=== PATIENT | female | born 1965 | race Caucasian/White ===

== ENCOUNTER → 2020-09-23 16:55 | Outpatient (CLI) | payer BC, SELFPAY ==
[2020-09-23 17:39] LABS: Basophils # 0.1 K/mm3 (0-0.2); Basophils % 0.5 % (0.1-2.0); Eosinophils # 0.3 K/mm3 (0.0-0.4); Eosinophils % 3.4 % (0.1-12.0); Hematocrit 53.1 % (37.0-47.0); Hemoglobin 17.2 g/dL (12.2-16.2); Lymphocytes # 1.9 K/mm3 (0.7-4.5); Lymphocytes % 21.4 % (10-50); Mean Corpuscular HGB Conc 32.5 g/dL (31.8-35.4); Mean Corpuscular Hemoglobin 30.8 pg (27.0-31.2); Mean Corpuscular Volume 94.7 fl (81-99); Mean Platelet Volume 10.1 fl (7.4-10.4); Monocytes # 0.5 K/mm3 (0.1-1.0); Monocytes % 5.8 % (1.7-9.3); Neutrophils # 6.1 K/mm3 (1.8-7.8); Neutrophils % 68.9 % (37.0-80.0); Platelet Count 333 K/mm3 (142-424); Red Cell Distribution Width 13.7 % (11.5-17.5); White Blood Count 8.9 K/mm3 (4.8-10.8)
[2020-09-23 17:42] LABS: Alanine Aminotransferase 23 U/L (12-78); Albumin Level 4.5 g/dl (3.5-5.0); Albumin/Globulin Ratio 1.3 (1.1-1.8); Alkaline Phosphatase 98 U/L (38-126); Anion Gap 13.7 mEq/L (5-15); Aspartate Amino Transferase 29 U/L (14-36); Bilirubin,Total 0.5 mg/dl (0.2-1.3); Blood Urea Nitrogen 23 mg/dl (7-17); Calcium 10.3 mg/dl (8.4-10.2); Carbon Dioxide 28 mmol/L (22.0-30.0); Chloride 102 mmol/L (98-107); Chol/HDL Ratio 4.4 (1-3.5); Cholesterol 272 mg/dl (140-200); Estimated Glomerular Filt Rate 65 ml/min (>60); GFR (African American) 78 ML/MIN (>60); Globulin 3.5 g/dL (1.3-3.2); Glucose 112 mg/dl (74-100); HDL Cholesterol 62 mg/dl (40-60); Potassium 4.7 mmoL/L (3.5-5.1); Sodium 139 mmol/L (136-145); Triglycerides 239 mg/dl (30-150); VLDL Cholesterol 48 mg/dL (0-40)
[2020-09-23 17:53] LABS: Direct LDL Cholesterol 165.98 mg/dL (100-129)
[2020-09-23 17:58] LABS: T4 (Thyroxine) 11.2 ug/dl (5.53-11.0)
[2020-09-23 18:12] LABS: Thyroid Stimulating Hormone 3.85 uIU/mL (0.465-4.68)
== END ==
PROVIDERS: Visit Provider Family Medicine
DX: M79.7 Fibromyalgia (principal); E03.9 Hypothyroidism, unspecified; L85.3 Xerosis cutis
CPT/HCPCS: 80053; 80061; 83036; 84436; 84443; 85025

== ENCOUNTER → 2021-03-14 14:04 | Outpatient (CLI) | payer BC, SELFPAY ==
[2021-03-14 14:38] LABS: Basophils % 0.3 % (0.1-2.0); Eosinophils # 0.3 K/mm3 (0.0-0.4); Eosinophils % 2.9 % (0.1-12.0); Hematocrit 49.3 % (37.0-47.0); Hemoglobin 15.6 g/dL (12.2-16.2); Lymphocytes # 1.7 K/mm3 (0.7-4.5); Lymphocytes % 19.8 % (10-50); Mean Corpuscular HGB Conc 31.7 g/dL (31.8-35.4); Mean Corpuscular Hemoglobin 29.1 pg (27.0-31.2); Mean Platelet Volume 9.5 fl (7.4-10.4); Monocytes # 0.6 K/mm3 (0.1-1.0); Monocytes % 7.6 % (1.7-9.3); Neutrophils # 5.9 K/mm3 (1.8-7.8); Neutrophils % 69.4 % (37.0-80.0); Platelet Count 299 K/mm3 (142-424); Red Blood Count 5.36 M/mm3 (4.20-5.40); Red Cell Distribution Width 13.3 % (11.5-17.5); White Blood Count 8.5 K/mm3 (4.8-10.8)
[2021-03-14 14:42] LABS: Alanine Aminotransferase 23 U/L (12-78); Albumin Level 4.3 g/dl (3.5-5.0); Albumin/Globulin Ratio 1.4 (1.1-1.8); Alkaline Phosphatase 98 U/L (38-126); Anion Gap 15.9 mEq/L (5-15); Aspartate Amino Transferase 27 U/L (14-36); Bilirubin,Total 0.4 mg/dl (0.2-1.3); Blood Urea Nitrogen 16 mg/dl (7-17); Calcium 9.6 mg/dl (8.4-10.2); Carbon Dioxide 25 mmol/L (22.0-30.0); Chloride 105 mmol/L (98-107); Cholesterol 188 mg/dl (140-200); Estimated Glomerular Filt Rate 65 ml/min (>60); GFR (African American) 78 ML/MIN (>60); Glucose 88 mg/dl (74-100); HDL Cholesterol 63 mg/dl (40-60); Potassium 4.9 mmoL/L (3.5-5.1); Sodium 141 mmol/L (136-145); Total Protein,Serum 7.3 g/dl (6.3-8.2); Triglycerides 177 mg/dl (30-150); VLDL Cholesterol 35 mg/dL (0-40)
[2021-03-14 15:11] LABS: Thyroid Stimulating Hormone 4.24 uIU/mL (0.465-4.68)
[2021-03-14 19:31] LABS: Direct LDL Cholesterol 91.96 mg/dL (100-129)
== END ==
PROVIDERS: Visit Provider Family Medicine
DX: N39.0 Urinary tract infection, site not specified (principal); E03.9 Hypothyroidism, unspecified
CPT/HCPCS: 80053; 80061; 84443; 85025; 87086

== ENCOUNTER → 2021-12-15 15:48 | Outpatient (CLI) | payer MEDICAID, SELFPAY ==
[2021-12-15 14:24] LABS: Basophils # 0.1 K/mm3 (0-0.2); Basophils % 0.7 % (0.1-2.0); Eosinophils # 0.2 K/mm3 (0.0-0.4); Eosinophils % 2.8 % (0.1-12.0); Hematocrit 49.2 % (37.0-47.0); Hemoglobin 15.9 g/dL (12.2-16.2); Lymphocytes # 1.5 K/mm3 (0.7-4.5); Mean Corpuscular HGB Conc 32.4 g/dL (31.8-35.4); Mean Corpuscular Hemoglobin 30.2 pg (27.0-31.2); Mean Corpuscular Volume 93.1 fl (81-99); Mean Platelet Volume 9.4 fl (7.4-10.4); Monocytes # 0.5 K/mm3 (0.1-1.0); Monocytes % 6.2 % (1.7-9.3); Neutrophils # 6.1 K/mm3 (1.8-7.8); Neutrophils % 72.4 % (37.0-80.0); Platelet Count 398 K/mm3 (142-424); Red Blood Count 5.29 M/mm3 (4.20-5.40); Red Cell Distribution Width 13.8 % (11.5-17.5); White Blood Count 8.5 K/mm3 (4.8-10.8)
[2021-12-15 14:51] LABS: Erythrocyte Sedimentation Rate 13 mm/hr (0-30)
[2021-12-15 15:50] LABS: Alanine Aminotransferase 29 U/L (12-78); Albumin Level 4.3 g/dl (3.5-5.0); Albumin/Globulin Ratio 1.4 (1.1-1.8); Alkaline Phosphatase 102 U/L (38-126); Anion Gap 11.4 mEq/L (5-15); Aspartate Amino Transferase 28 U/L (14-36); Bilirubin,Total 0.4 mg/dl (0.2-1.3); Blood Urea Nitrogen 19 mg/dl (7-17); Calcium 9.3 mg/dl (8.4-10.2); Carbon Dioxide 28 mmol/L (22.0-30.0); Chloride 102 mmol/L (98-107); Creatine Kinase 45 U/L (30-135); Estimated Glomerular Filt Rate 64 ml/min (>60); GFR (African American) 78 ML/MIN (>60); Glucose 86 mg/dl (74-100); Potassium 5.4 mmoL/L (3.5-5.1); Sodium 136 mmol/L (136-145); Total Protein,Serum 7.3 g/dl (6.3-8.2)
[2021-12-15 15:56] LABS: C-Reactive Protein 25.1 mg/L (0-4)
[2021-12-15 16:23] LABS: Thyroid Stimulating Hormone 2.98 uIU/mL (0.465-4.68)
[2021-12-18 22:13] LABS: Antinuclear Antibodies (ANA) NEGATIVE
== END ==
PROVIDERS: Visit Provider Family Medicine
DX: M25.50 Pain in unspecified joint (principal)
CPT/HCPCS: 80053; 82550; 83036; 84443; 85025; 85651; 86038; 86140

== ENCOUNTER → 2022-05-29 16:17 | Outpatient (CLI) | payer MEDICAID, SELFPAY ==
[2022-05-29 14:40] LABS: Erythrocyte Sedimentation Rate 12 mm/hr (0-30)
[2022-05-29 14:47] LABS: Creatine Kinase 48 U/L (30-135)
[2022-05-29 14:52] LABS: C-Reactive Protein 36.6 mg/L (0-4)
[2022-06-13 17:34] LABS: Antinuclear Antibodies (ANA) Negative; Rheumatoid Factor IGA < 7; Rheumatoid Factor IGM < 7
== END ==
PROVIDERS: PCP Family Medicine; Visit Provider Family Medicine
DX: M79.7 Fibromyalgia (principal)
CPT/HCPCS: 82550; 85651; 86038; 86140; 86431

== ENCOUNTER 2023-10-14 23:06 | Outpatient (CLI) | payer MEDICARE, MEDICAID, SELFPAY ==
[2023-10-14 18:59] LABS: Basophils # 0.1 K/mm3 (0-0.2); Basophils % 0.7 % (0.1-2.0); Eosinophils # 0.4 K/mm3 (0.0-0.4); Eosinophils % 3.9 % (0.1-12.0); Hematocrit 47.8 % (37.0-47.0); Hemoglobin 15.7 g/dL (12.2-16.2); Lymphocytes # 2.3 K/mm3 (0.7-4.5); Lymphocytes % 24.6 % (10-50); Mean Corpuscular HGB Conc 32.8 g/dL (31.8-35.4); Mean Corpuscular Hemoglobin 30.5 pg (27.0-31.2); Mean Corpuscular Volume 93.1 fl (81-99); Mean Platelet Volume 9.6 fl (7.4-10.4); Monocytes # 0.6 K/mm3 (0.1-1.0); Monocytes % 6.6 % (1.7-9.3); Neutrophils # 6.1 K/mm3 (1.8-7.8); Neutrophils % 64.2 % (37.0-80.0); Platelet Count 321 K/mm3 (142-424); Red Blood Count 5.14 M/mm3 (4.20-5.40); Red Cell Distribution Width 14.1 % (11.5-17.5); White Blood Count 9.5 K/mm3 (4.8-10.8)
[2023-10-14 19:16] LABS: Alanine Aminotransferase 26 U/L (12-78); Albumin Level 3.8 g/dl (3.5-5.0); Albumin/Globulin Ratio 1.3 (1.1-1.8); Alkaline Phosphatase 90 U/L (38-126); Anion Gap 10.5 mEq/L (5-15); Aspartate Amino Transferase 28 U/L (14-36); Bilirubin,Total 0.3 mg/dl (0.2-1.3); Blood Urea Nitrogen 12 mg/dl (7-17); Calcium 9.9 mg/dl (8.4-10.2); Carbon Dioxide 28 mmol/L (22.0-30.0); Chloride 104 mmol/L (98-107); Chol/HDL Ratio 4.3 (1-3.5); Cholesterol 247 mg/dl (140-200); Estimated Glomerular Filt Rate 85 ml/min (>60); GFR (African American) 103 ML/MIN (>60); Globulin 2.9 g/dL (1.3-3.2); Glucose 123 mg/dl (74-100); HDL Cholesterol 57 mg/dl (40-60); Potassium 4.5 mmoL/L (3.5-5.1); Sodium 138 mmol/L (136-145); Total Protein,Serum 6.7 g/dl (6.3-8.2); Triglycerides 222 mg/dl (30-150); VLDL Cholesterol 44 mg/dL (0-40)
[2023-10-14 19:27] LABS: Direct LDL Cholesterol 144.81 mg/dL (100-129)
[2023-10-14 19:46] LABS: Thyroid Stimulating Hormone 2.52 uIU/mL (0.465-4.68)
[2023-10-14 21:58] LABS: Hemoglobin A1C 6.9 % (4.0-6.0)
== END 2023-10-14 23:59 ==
LOC: LAB.DROPOF 23:06
PROVIDERS: PCP Family Medicine; Visit Provider Family Medicine
DX: E03.9 Hypothyroidism, unspecified (principal); E11.9 Type 2 diabetes mellitus without complications; Z79.84 Long term (current) use of oral hypoglycemic drugs; Z79.899 Other long term (current) drug therapy
CPT/HCPCS: 80053; 80061; 83036; 84443; 85025

== ENCOUNTER 2024-08-04 09:18 | Outpatient (CLI) | payer MEDICARE, MEDICAID, SELFPAY ==
[2024-08-04 18:58] LABS: Alanine Aminotransferase 32 U/L (12-78); Albumin/Globulin Ratio 1.4 (1.1-1.8); Alkaline Phosphatase 122 U/L (38-126); Anion Gap 13.3 mEq/L (5-15); Aspartate Amino Transferase 31 U/L (14-36); Bilirubin,Total 0.6 mg/dl (0.2-1.3); Blood Urea Nitrogen 14 mg/dl (7-17); Calcium 9.4 mg/dl (8.4-10.2); Carbon Dioxide 24 mmol/L (22.0-30.0); Chloride 106 mmol/L (98-107); Chol/HDL Ratio 3.1 (1-3.5); Cholesterol 214 mg/dl (140-200); Estimated Glomerular Filt Rate 85 ml/min (>60); GFR (African American) 103 ML/MIN (>60); Globulin 2.8 g/dL (1.3-3.2); Glucose 88 mg/dl (74-100); HDL Cholesterol 68 mg/dl (40-60); Potassium 4.3 mmoL/L (3.5-5.1); Sodium 139 mmol/L (136-145); Total Protein,Serum 6.8 g/dl (6.3-8.2); Triglycerides 131 mg/dl (30-150); VLDL Cholesterol 26 mg/dL (0-40)
[2024-08-04 19:08] LABS: Direct LDL Cholesterol 136.98 mg/dL (100-129)
[2024-08-04 19:28] LABS: Thyroid Stimulating Hormone 2.28 uIU/mL (0.465-4.68)
[2024-08-05 14:47] LABS: Hemoglobin A1C 5.5 % (4.0-6.0)
== END 2024-08-04 23:59 | disposition home or self-care (01) ==
LOC: LAB.DROPOF 08-07 09:19
PROVIDERS: PCP Family Medicine; Visit Provider Family Medicine
DX: E03.9 Hypothyroidism, unspecified (principal); E11.9 Type 2 diabetes mellitus without complications
CPT/HCPCS: 80053; 80061; 83036; 84443

== ENCOUNTER 2024-10-06 09:50 | Outpatient (CLI) | payer MEDICARE, SELFPAY ==
--- NOTE | 2024-10-06 09:51 | CT_ITS ---
FINAL REPORT TECHNIQUE: Axial images through the abdomen and pelvis were performed without contrast. This study was performed with techniques to keep radiation doses as low as reasonably achievable, (ALARA). Individualized dose reduction techniques using automated exposure control or adjustment of mA and/or kV according to the patient's size were employed. CLINICAL HISTORY: Pelvic pain COMPARISON: None FINDINGS: Abdomen: Calcified granuloma is seen at the right lung base. The liver parenchyma is homogeneous. The gallbladder is not clearly seen. Calcified granulomas are seen throughout the spleen. The pancreas and adrenal glands are unremarkable. There is a small nonobstructing stone in the lower pole of the left renal collecting system measuring 3 mm and well seen on image 50 of series 601. There is a parapelvic cyst in the left kidney measuring 2.5 cm in greatest dimension. Pelvis: The urinary bladder is decompressed. The appendix is unremarkable. Calcified phleboliths are seen in the floor the pelvis. There is no acute inflammatory reaction. No fluid collections are seen. IMPRESSION: Nonobstructing left kidney stone. Left parapelvic renal cyst. Reviewed, Interpreted and Dictated by Tanner Peng MD Transcribed by Roseline Boyle Authenticated and [facility]
== END 2024-10-06 23:59 | disposition home or self-care (01) ==
LOC: RAD 09:51
PROVIDERS: PCP Family Medicine; Visit Provider Nurse Practitioner Obstetrics & Gynecology
DX: N73.6 Female pelvic peritoneal adhesions (postinfective) (principal)
CPT/HCPCS: 74176

== ENCOUNTER 2025-03-14 09:40 | Outpatient (CLI) | payer MEDICARE, SELFPAY ==
[2025-03-14 21:30] LABS: Hematocrit 50.9 % (37.0-47.0); Hemoglobin 15.4 g/dL (12.2-16.2); Immature Granulocytes % 0.4 %; Mean Corpuscular HGB Conc 30.3 g/dL (31.8-35.4); Mean Corpuscular Hemoglobin 29.3 pg (27.0-31.2); Mean Corpuscular Volume 97.0 fl (81-99); Nucleated Red Blood Cells % 0 %; Platelet Count 313 K/mm3 (142-424); Red Blood Count 5.25 M/mm3 (4.20-5.40); Red Cell Distribution Width-SD 50.7 fL; White Blood Count 9.8 K/mm3 (4.8-10.8)
[2025-03-14 21:59] LABS: Alanine Aminotransferase 26 U/L (12-78); Albumin Level 4.3 g/dl (3.5-5.0); Albumin/Globulin Ratio 1.4 (1.1-1.8); Alkaline Phosphatase 100 U/L (38-126); Anion Gap 13.4 mEq/L (5-15); Aspartate Amino Transferase 29 U/L (14-36); Bilirubin,Total 0.6 mg/dl (0.2-1.3); Blood Urea Nitrogen 15 mg/dl (7-17); Calcium 9.8 mg/dl (8.4-10.2); Carbon Dioxide 28 mmol/L (22.0-30.0); Chloride 98 mmol/L (98-107); Cholesterol 248 mg/dl (140-200); Creatinine,Serum 0.70 mg/dl (0.52-1.04); Estimated Glomerular Filt Rate 85 ml/min (>60); GFR (African American) 103 ML/MIN (>60); Globulin 3.0 g/dL (1.3-3.2); Glucose 94 mg/dl (74-100); HDL Cholesterol 66 mg/dl (40-60); Potassium 5.4 mmoL/L (3.5-5.1); Sodium 134 mmol/L (136-145); Total Protein,Serum 7.3 g/dl (6.3-8.2); Triglycerides 142 mg/dl (30-150)
[2025-03-14 22:28] LABS: Thyroid Stimulating Hormone 2.55 uIU/mL (0.465-4.68)
[2025-03-14 23:14] LABS: Hepatitis C Ab Qual. W/ RFX NEGATIVE (Negative)
[2025-03-16 06:10] LABS: Hepatitis B Surface Antigen Negative (Negative)
--- OUTSIDE RECORDS SUMMARY | 2025-03-19 11:03 | XMS_ITS | Clinical Summary ---
Author Organization [facility] Address [address] [place] [phone] Phone Care Team Providers Care In Store Marketing Associate Name Role Phone Мария Holbrook MD Primary Care Provider [phone] Allergies Active Allergy Reactions Criticality Noted Date Comments Prochlorperazine Palpitations 05/13/2011 Meperidine Palpitations 05/13/2011 Fentanyl Anaphylaxis 05/13/2011 Medications levothyroxine (SYNTHROID) 100 mcg tablet Take 50 mcg by mouth daily. Active promethazine (PHENERGAN) 25 mg tablet Take 25 mg by mouth every 6 hours as needed for Nausea. Active carisoprodol (SOMA) 350 mg tablet Take 350 mg by mouth 4 times daily as needed for Muscle spasms. Active estradiol (ESTRACE) 0.5 mg tablet Take 0.5 mg by mouth daily. Active gabapentin (NEURONTIN) 600 mg tablet Take 600 mg by mouth 3 times daily. Active ergocalciferol (VITAMIN D) 50,000 unit capsule Take 1 Cap by mouth every 7 days. Active simvastatin (ZOCOR) 10 mg Take 10 mg by mouth daily. Active venlafaxine (EFFEXOR) 75 mg tablet Take 75 mg by mouth 2 times daily. Active pentosan polysulfate (ELMIRON) 100 mg capsule Take 100 mg by mouth 3 times daily (before meals). Active SUMATRIPTAN (IMITREX NASL) 20 mg by Nasal route as needed. Active Acetaminophen-Co deine (TYLENOL #3) 300-30 mg per tablet Take 300 mg by mouth every 4 hours as needed for Pain. Active ibuprofen (ADVIL;MOTRIN) 800 mg Take 800 mg by mouth 3 times daily. Active amitriptyline (ELAVIL) 25 mg Oral TabletIndication s:Sensation of pressure in bladder area,Chronic bilateral low back pain with bilateral sciatica Take 25 mg by mouth daily. 12/10/2020 Active topiramate (TOPAMAX) 50 mg Oral TabletIndication s:Sensation of pressure in bladder area,Chronic bilateral low back pain with bilateral sciatica Take 50 mg by mouth daily. 11/12/2020 Active Pitavastatin (LIVALO) 2 mg Oral TabletIndication s:Sensation of pressure in bladder area,Chronic bilateral low back pain with bilateral sciatica Take 2 mg by mouth daily. Active pregabalin (LYRICA) 75 mg Oral CapsuleIndicatio ns:Sensation of pressure in bladder area,Chronic bilateral low back pain with bilateral sciatica Take by mouth 2 times daily. Active Active Problems Problem Noted Date Diagnosed Date Abdominal pain 05/13/2011 Surgical History Surgery Date Site/Laterality Comments ANKLE FRACTURE SURGERY 09/13/2004 - 09/12/2005 SECTION 09/13/1982 - 09/12/1983 HYSTERECTOMY 09/13/1995 - 09/12/1996 LAPAROSCOPY 09/13/1990 - 09/12/1991 DILATION AND CURETTAGE OF UTERUS 09/13/1980 - 09/12/1981 FOOT SURGERY 09/13/1980 - 09/12/1981 CYST CHOLECYSTECTOMY 09/13/2005 - 09/12/2006 TONSILLECTOMY AND ADENOIDECTOMY HYSTERECTOMY 09/13/1992 - 09/12/1993 Dr Champagne Medical History Medical History Date Comments Neuromuscular disorder (HCC) Thyroid disease Social History Tobacco Use Types Packs/Day Years Used Date Smoking Tobacco: Every Day Cigarettes 0.5 6 Smokeless Tobacco: Never Alcohol Use Standard Drinks/Week Comments Yes 0 (1 standard drink = 0.6 oz pur e alcohol) Sexually Active Control Partners Comments Yes Comments Unknown Sex and Gender Information Value Date Recorded Sex Assigned at Not on file Legal Sex Female 9:22 PM EDT Gender Identity Not on file Sexual Orientation Not on file Obstetrics History Last Filed Vital Signs Vital Sign Reading Time Taken Comments Blood Pressure 126/72 02/13/2021 10:09 AM EDT Pulse 86 07/07/2017 12:40 PM EDT Temperature 36.1 C (96.9 F) 02/13/2021 10:09 AM EDT Respiratory Rate 18 07/07/2017 12:4 0 PM EDT Oxygen Saturation 98% 07/07/2017 12: 40 PM EDT Inhaled Oxygen Concentration - - Weight 109.1 kg (240 lb 9.6 oz) 021 10:09 AM EDT Height 152.4 cm (5') 07/07/2017 12:40 PM EDT Body Mass Index 46.99 07/07/2017 12:40 PM EDT Plan of Treatment Health Maintenance Due Date Last Done Comments Annual Wellness Exam 1966 Hepatitis C Screening 1981 Cervical Cancer Screening 1984 Pap Smear 1984 HPV/Pap Cotest 1993 Breast Cancer Screening 2003 Cologuard 2008 Colon Cancer Screening 2008 Colonoscopy 2008 FIT 2008 Sigmoidoscopy 2008 Virtual Colonography 2008 Zoster (1 of 2) 2013 Pneumococcal Vaccine 50+ (2 of 2 - PCV) 06/17/2013 06/17/2012 DTaP/TDaP/Td (2 - Td or Tdap) 05/27/2022 05/27/2012 COVID-19 Vaccine (1 - 2023-2 5 season) 2024 Influenza Vaccine (#1) 2025 06/17/2012 Hepatitis B Vaccine Aged Out No longe r eligible based on patient's age to complete this topic Meningococcal B Vaccine Aged Out No l onger eligible based on patient's age to complete this topic Insurance [employer] MEDICAID [facility] MEDICAID Care Teams In Store Marketing Associate Relationship Specialty Start Date End Date Мария Holbrook MD [address] [place] [id number] PCP - General 05/13/11
== END 2025-03-14 23:59 | disposition home or self-care (01) ==
LOC: LAB.DROPOF 03-19 10:41
PROVIDERS: PCP Family Medicine; Visit Provider Family Medicine
DX: E03.9 Hypothyroidism, unspecified (principal); G43.909 Migraine, unspecified, not intractable, without status migrainosus; E66.01 Morbid (severe) obesity due to excess calories; M79.7 Fibromyalgia; Z11.59 Encounter for screening for other viral diseases
CPT/HCPCS: 80053; 80061; 80074; 82043; 82570; 84443; 85025; 87340; 87389